=== PATIENT | female | born 1985 | race Caucasian/White ===

== ENCOUNTER 2020-08-29 23:48 | Outpatient (CLI) | payer OTHER ==
[~2020-08-29 23:48] MED LIST: IBUPROFEN600 MG PO
[2020-08-30 02:16] LABS: HEMOGLOBIN 10.2 gm/dl (12.3-15.3); RED BLOOD COUNT 3.3 M/UL (4.00-5.10); WHITE BLOOD COUNT 13.1 K/UL (4.5-11.0)
[2020-08-30 02:39] LABS: BUN/CREATININE RATIO 14 (0-10)
== END 2020-08-30 12:32 | disposition home or self-care (01) ==
LOC: GENOP 23:48
PROVIDERS: Obstetrics & Gynecology
DX: O60.03 Preterm labor without delivery, third trimester (principal); K80.20 Calculus of gallbladder without cholecystitis without obstruction; Z3A.35 35 weeks gestation of pregnancy
CPT/HCPCS: 36415; 59025; 76705; 80053; 81001; 82150; 83690; 85025; 96360; 96361; 96372; 96374; 96375; 96376; J0595; J0702; J2405; J2550; J3105; J7120

== ENCOUNTER 2020-09-01 19:44 | Outpatient (CLI) | payer OTHER ==
[2020-09-01 21:06] LABS: HEMOGLOBIN 9.2 gm/dl (12.3-15.3); WHITE BLOOD COUNT 13.4 K/UL (4.5-11.0)
[2020-09-01 21:07] LABS: RED BLOOD COUNT 2.96 M/UL (4.00-5.10)
== END 2020-09-01 22:31 | disposition home or self-care (01) ==
LOC: GENOP 19:44
PROVIDERS: Obstetrics & Gynecology
DX: O99.613 Diseases of the digestive system complicating pregnancy, third trimester (principal); K80.20 Calculus of gallbladder without cholecystitis without obstruction; O99.891 Other specified diseases and conditions complicating pregnancy; R10.9 Unspecified abdominal pain; R11.0 Nausea; M79.89 Other specified soft tissue disorders; Z3A.35 35 weeks gestation of pregnancy
CPT/HCPCS: 81001; 82247; 82565; 82570; 83615; 84156; 84450; 84460; 84550; 85025; 85379; 85384; 85610; 85730; 96360; 96367; 96374; J2405; J2765; J7120; Q0177

== ENCOUNTER 2020-09-15 06:34 | Inpatient (IN) | payer OTHER ==
[~2020-09-15] VITALS: Ht 165.1 cm; Wt 83.5 kg
[2020-09-15 07:11] LABS: HEMOGLOBIN 10.2 gm/dl (12.3-15.3); RED BLOOD COUNT 3.34 M/UL (4.00-5.10); WHITE BLOOD COUNT 8.4 K/UL (4.5-11.0)
[2020-09-15] MEDS ORDERED: PRENATAL VITAM1 EAC3 PO (08:00)
[2020-09-15] MEDS ORDERED: FERROUS SULFAT325 M2 PO (08:02)
[2020-09-15] MEDS ORDERED: IBUPROFEN600 MG PO (09:19)
[2020-09-15] MEDS ORDERED: HYDROCODON-ACE1 EAC6 PO (09:19)
[2020-09-15] MEDS ORDERED: COLACE 100MG C100 MG PO (09:19)
[2020-09-16 05:57] LABS: HEMOGLOBIN 9.5 gm/dl (12.3-15.3)
== END 2020-09-16 16:10 | disposition home or self-care (01) | DRG 788 ==
LOC: OB 06:34
PROVIDERS: ADMIT Obstetrics & Gynecology
PROC: 10D00Z1 Extraction of Products of Conception, Low, Open Approach (ICD-10-PCS; principal; 2020-09-15 09:00)
DX: O34.29 Maternal care due to uterine scar from other previous surgery (principal); O09.523 Supervision of elderly multigravida, third trimester; Z3A.37 37 weeks gestation of pregnancy; O99.334 Smoking (tobacco) complicating childbirth; Z37.0 Single live birth; O99.612 Diseases of the digestive system complicating pregnancy, second trimester; N85.8 Other specified noninflammatory disorders of uterus; Z20.822 Contact with and (suspected) exposure to COVID-19
CPT/HCPCS: 36415; 81001; 82800; 85014; 85018; 85025; C9113; J0690; J1885; J2274; J2370; J2405; J2590; J3010; J7120

== ENCOUNTER 2022-02-12 10:54 | Outpatient (CLI) | payer OTHER ==
[~2022-02-12] VITALS: Ht 165.1 cm; Wt 89.8 kg
[~2022-02-12 10:54] MED LIST changes: +COLACE 100MG C100 MG PO; +FERROUS SULFAT325 M2 PO; +HYDROCODON-ACE1 EAC6 PO; +PRENATAL VITAM1 EAC3 PO
== END 2022-02-12 14:54 | disposition home or self-care (01) ==
LOC: GENOP 10:54
DX: O47.03 False labor before 37 completed weeks of gestation, third trimester (principal); Z87.891 Personal history of nicotine dependence; Z3A.33 33 weeks gestation of pregnancy
CPT/HCPCS: 81001; 96360; 96361; 96372; J0702

== ENCOUNTER → 2022-02-13 | Outpatient (CLI) | payer OTHER | LOC: GENOP 11:59 | DX: Z29.8 Encounter for other specified prophylactic measures (principal) | CPT/HCPCS: 96372; J0702 ==

== ENCOUNTER 2022-03-08 05:45 | Inpatient (IN) | payer OTHER ==
[~2022-03-08] VITALS: Ht 165.1 cm; Wt 90.7 kg
[2022-03-08 06:20] LABS: HEMOGLOBIN 8.6 gm/dl (12.3-15.3); RED BLOOD COUNT 3.49 M/UL (4.00-5.10); WHITE BLOOD COUNT 11.2 K/UL (4.5-11.0)
[2022-03-08] MEDS ORDERED: HYDROCODON-ACE1 EAC6 PO (07:44)
[2022-03-08] MEDS ORDERED: IBUPROFEN600 MG PO (07:44)
[2022-03-08] MEDS ORDERED: COLACE 100MG C100 MG PO (07:44)
[2022-03-09 06:29] LABS: HEMOGLOBIN 8.1 gm/dl (12.3-15.3)
== END 2022-03-09 17:44 | disposition home or self-care (01) | DRG 788 ==
LOC: OB 05:45
PROVIDERS: ADMIT Obstetrics & Gynecology
PROC: 4A1HXCZ Monitoring of Products of Conception, Cardiac Rate, External Approach (ICD-10-PCS; 2022-03-08)
PROC: 10D00Z1 Extraction of Products of Conception, Low, Open Approach (ICD-10-PCS; principal; 2022-03-08 07:30)
DX: O13.4 Gestational [pregnancy-induced] hypertension without significant proteinuria, complicating childbirth (principal); Z37.0 Single live birth; Z3A.37 37 weeks gestation of pregnancy; Z20.822 Contact with and (suspected) exposure to COVID-19; O99.02 Anemia complicating childbirth; D64.9 Anemia, unspecified; Z80.3 Family history of malignant neoplasm of breast; Z90.49 Acquired absence of other specified parts of digestive tract; Z87.891 Personal history of nicotine dependence
CPT/HCPCS: 36415; 81001; 82800; 85014; 85018; 85025; C9113; J0690; J1170; J2370; J2405; J2590; J3010